=== PATIENT | male | born 1990 | race Caucasian/White ===

== ENCOUNTER 2017-06-13 18:00 | Emergency (ER) | payer OTHER ==
[~2017-06-13] VITALS: Ht 175.3 cm; Wt 99.4 kg
[2017-06-13 18:49] VITALS: BP 139/79
[2017-06-13] MEDS ORDERED: TRUVADA1 TABLET PO (19:22)
[2017-06-13] MEDS ORDERED: ISENTRESS400 MG PO (19:22)
[2017-06-13 19:30] LABS: BASOPHIL (%) 0.6 % (0-1); BASOPHIL COUNT 0.1 K/uL (0-0.1); EOSINOPHIL (%) 2.7 % (0-5); EOSINOPHIL COUNT 0.3 K/uL (0-0.3); HEMATOCRIT 43.5 % (38.0-50.0); HEMOGLOBIN 15.2 G/DL (12.5-16.6); IMMATURE GRANULOCYTE (%) 0.4 % (0.0-0.7); LYMPHOCYTE COUNT 2.9 K/uL (1.0-2.8); MCHC 34.9 G/DL (30.0-36.0); MCV 82.9 FL (86-99); MONOCYTE (%) 10.7 % (3-12); NEUTROPHIL (%) 54.6 % (45-76); NEUTROPHIL COUNT 5.1 K/uL (1.8-6.4); PLATELET COUNT 216 K/uL (156-360); RBC DIS.WIDTH-CV 11.8 % (11.8-14.6); RBC DIS.WIDTH-SD 35.6 % (39-53); RED BLOOD COUNT 5.25 M/uL (4.00-5.50); WHITE BLOOD COUNT 9.4 K/uL (4.1-10.2)
[2017-06-13 19:39] LABS: ALBUMIN 4.5 g/dL (3.2-4.8); CHLORIDE 105 mEq/L (99-109); POTASSIUM 4.1 mEq/L (3.7-5.4); SODIUM 140 mEq/L (136-147)
[2017-06-13 19:41] LABS: GLUCOSE 84 mg/dL (70-99); TOTAL PROTEIN 7.4 g/dL (6.4-8.3)
[2017-06-13 19:43] LABS: TOTAL BILIRUBIN 0.5 mg/dL (0.0-1.0)
[2017-06-13 19:45] LABS: ALKALINE PHOSPHATASE 76 IU/L (3-129); CREATININE 1.2 mg/dL (0.6-1.3); GFR ESTIMATE (CALCULATED) > 59 mL/min/ (58.99-99999)
[2017-06-13 19:46] LABS: AST (GOT) 46 IU/L (2-34); DIRECT BILIRUBIN 0.2 mg/dL (0.0-0.3); UREA NITROGEN (BUN) 21 mg/dL (9-23)
[2017-06-13 19:48] LABS: ALT (GPT) 44 IU/L (3-49)
[2017-06-15 10:54] LABS: HEPATITIS B SURFACE ANTIBODY Nonreactive; HEPATITIS C ANTIBODY Nonreactive
[2017-06-15 10:55] LABS: HIV-1/2 AB/AG COMBO Nonreactive
== END 2017-06-13 20:21 | disposition home or self-care (01) ==
LOC: EME 18:00
PROVIDERS: Physician Assistant
PROC: 3E0234Z Introduction of Serum, Toxoid and Vaccine into Muscle, Percutaneous Approach (ICD-10-PCS; principal; 2017-06-13)
DX: S61.230A Puncture wound without foreign body of right index finger without damage to nail, initial encounter (principal); W46.0XXA Contact with hypodermic needle, initial encounter; Y99.0 Civilian activity done for income or pay; Z23 Encounter for immunization
CPT/HCPCS: 80048; 80076; 85025; 86706; 86803; 87389; 99281; 99284